=== PATIENT | female | born 1940 | race African-American/Black ===

== ENCOUNTER 2018-03-12 18:30 | Observation (INO) ==
[2018-03-13] MEDS ORDERED: SODIUM CHLORIDE 0.9% 500 ML IV STA (00:24)
[2018-03-13] MEDS ORDERED: ASPIRIN 325 MG TABLET PO STA (00:24)
[2018-03-13] MEDS ORDERED: ONDANSETRON 4 MG/2 ML VIAL IV STA (00:24)
[2018-03-13 01:00] LABS: Basophils % 0.4 % (0.0-0.8); Eosinophils # 0.1 10*3/uL (0.0-0.87); Eosinophils % 1.3 % (0.00-10.9); Hematocrit 30.2 VOL% (35.7-47.0); Hemoglobin 9.3 GM/DL (12.0-16.0); Immature Granulocytes % 0.2 %; Immature Granulocytes Absolute 0.02 #; Lymphocytes % 21.4 % (21.3-54.2); Mean Corpuscular HGB Conc 30.8 GM/DL (32-36); Mean Corpuscular Hemoglobin 28 PG (27-34); Mean Corpuscular Volume 91.8 FL (87-102); Mean Platelet Volume 9.2 FL (9.6-12.0); Monocytes # 0.6 10*3/uL (0.11-0.8); Neutrophils # 6.5 10*3/uL (1.4-7.4); Neutrophils % 70.7 % (38.7-73.9); Platelet Count 321 T/CUMM (130-400); Red Blood Count 3.29 MC/CUMM (3.8-5.5); Red Cell Distribution Width 15.8 % (9.3-17.3); White Blood Count 9.3 T/CUMM (4-12)
[2018-03-13 01:09] LABS: INR 1.1; PT Patient Result 11.4 SECS
[2018-03-13 01:48] LABS: Albumin 2.9 G/DL (3.4-5.0); Bilirubin,Total 0.5 MG/DL (0.2-1.0); Calcium 13.3 MG/DL (8.5-10.1); Osmolality,Calculated 283.4 MOS/KG (273-304); Potassium 3.3 MMOL/L (3.5-5.1)
[2018-03-13] MEDS ORDERED: MAGNESIUM SULF RIDER 2 GM in PREMIX 1 EACH IV STA (01:58)
[2018-03-13] MEDS ORDERED: POTASSIUM CHLORIDE 20 MEQ TABLET PO STA (01:58)
[2018-03-13 02:01] LABS: Apearance,Urine CLOUDY (Clear); Bacteria,Urine Occasional /HPF (Few); Bilirubin,Urine Negative (Negative); Blood, Urine Negative (Negative); Glucose,Urine (UA) Negative (Negative); Hyaline Casts,Urine 34 /LPF (0-3); Ketones,Urine Negative (Negative); Mucus,Urine Many /LPF (Occasional); Nitrite,Urine Negative (Negative); Protein,Urine Negative; RBC,Urine 7 /HPF (0-4); Squamous Epithelial Cell,Urine Many /HPF (0-10); Transitional Epi Cells,Urine Few /HPF (<1); Urine Color Amber (Yellow); Urine Specific Gravity 1.025 (1.001-1.035); WBC,Urine 68 /HPF (0-6)
[2018-03-13] MEDS ORDERED: ZOLEDRONIC ACID 4 MG in PREMIX 1 EACH IV ONE (03:19)
[2018-03-13] MEDS ORDERED: MORPHINE 4 MG/1 ML VIAL IV PRN (03:21)
[2018-03-13] MEDS ORDERED: ONDANSETRON 4 MG/2 ML VIAL IV PRN (03:21)
[2018-03-13] MEDS ORDERED: DOCUSATE SODIUM 100 MG CAPSULE PO PRN (03:21)
[2018-03-13] MEDS ORDERED: MAGNESIUM SULF RIDER 4 GM in PREMIX 1 EACH IV PRN (03:28)
[2018-03-13] MEDS ORDERED: MAGNESIUM SULF RIDER 2 GM in PREMIX 1 EACH IV PRN (03:28)
[2018-03-13] MEDS: cefTRIAXone 1,000 MG in SYRINGE 1 EACH IV SCH (04:42)
[2018-03-13] MEDS: SODIUM CHLORIDE 0.9% 1,000 ML IV SCH ×2 (04:43→19:30)
[2018-03-13] MEDS: CARVEDILOL 12.5 MG TABLET PO SCH (16:29)
[2018-03-13] MEDS: POTASSIUM CHLORIDE 20 MEQ TABLET PO PRN ×2 (18:38→22:59)
[2018-03-13] MEDS: SIMVASTATIN 20 MG TABLET PO SCH (22:59)
[2018-03-14] MEDS: cefTRIAXone 1,000 MG in SYRINGE 1 EACH IV SCH (06:17)
[2018-03-14 07:20] LABS: Calcium 11.2 MG/DL (8.5-10.1); Osmolality,Calculated 283.1 MOS/KG (273-304); Potassium 4.1 MMOL/L (3.5-5.1); Thyroid Stimulating Hormone 1.4 uIU/ml (0.358-3.74)
[2018-03-14 08:12] LABS: Basophils % 0.2 % (0.0-0.8); Eosinophils % 0.4 % (0.00-10.9); Hematocrit 26.7 VOL% (35.7-47.0); Immature Granulocytes % 0.8 %; Immature Granulocytes Absolute 0.09 #; Lymphocytes # 0.9 10*3/uL (1.4-4.0); Lymphocytes % 7.7 % (21.3-54.2); Mean Corpuscular Hemoglobin 28 PG (27-34); Mean Corpuscular Volume 94.7 FL (87-102); Mean Platelet Volume 9.2 FL (9.6-12.0); Monocytes # 0.5 10*3/uL (0.11-0.8); Monocytes % 4.1 % (1.7-12.7); Neutrophils # 9.9 10*3/uL (1.4-7.4); Neutrophils % 86.8 % (38.7-73.9); Platelet Count 261 T/CUMM (130-400); Red Blood Count 2.82 MC/CUMM (3.8-5.5); Red Cell Distribution Width 15.8 % (9.3-17.3); White Blood Count 11.4 T/CUMM (4-12)
[2018-03-14] MEDS: CHOLECALCIFEROL 5,000 UNIT TABLET PO SCH (10:23)
[2018-03-14] MEDS: FERROUS SULFATE 325 MG TABLET PO SCH (10:24)
[2018-03-14] MEDS: LOSARTAN 50 MG TABLET PO SCH (10:24)
[2018-03-14] MEDS: CARVEDILOL 12.5 MG TABLET PO SCH ×2 (10:24→17:13)
[2018-03-14] MEDS: SODIUM CHLORIDE 0.9% 1,000 ML IV SCH (15:31)
[2018-03-14] MEDS ORDERED: SODIUM CHLORIDE 0.9% 500 ML IV ONE (15:31)
[2018-03-14] MEDS ORDERED: ALBUTEROL/IPRATROPIUM 3 ML NEB RESP TX STA (16:01)
[2018-03-14 16:27] LABS: Basophils % 0.3 % (0.0-0.8); Eosinophils % 0.4 % (0.00-10.9); Hematocrit 23.2 VOL% (35.7-47.0); Hemoglobin 6.9 GM/DL (12.0-16.0); Immature Granulocytes % 0.5 %; Immature Granulocytes Absolute 0.05 #; Lymphocytes # 0.7 10*3/uL (1.4-4.0); Lymphocytes % 6.8 % (21.3-54.2); Mean Corpuscular HGB Conc 29.7 GM/DL (32-36); Mean Corpuscular Hemoglobin 28 PG (27-34); Mean Corpuscular Volume 95.1 FL (87-102); Mean Platelet Volume 8.9 FL (9.6-12.0); Monocytes # 0.5 10*3/uL (0.11-0.8); Monocytes % 4.7 % (1.7-12.7); Neutrophils # 9.4 10*3/uL (1.4-7.4); Neutrophils % 87.3 % (38.7-73.9); Platelet Count 232 T/CUMM (130-400); Red Blood Count 2.44 MC/CUMM (3.8-5.5); Red Cell Distribution Width 15.8 % (9.3-17.3); White Blood Count 10.8 T/CUMM (4-12)
[2018-03-14 16:29] LABS: ABG Base Excess -0.3 MMOL/L (-2.5-2.5); ABG HCO3 24.2 MMOL/L (20-26); ABG PCO2 46.5 MM HG (35-48); ABG PH 7.347 (7.35-7.45); ABG TCO2 24.1 MMOL/L (23-27); Allen Test Positive
[2018-03-14 16:51] LABS: Calcium 10.5 MG/DL (8.5-10.1); Osmolality,Calculated 284.1 MOS/KG (273-304); Potassium 3.9 MMOL/L (3.5-5.1)
[2018-03-14] MEDS ORDERED: SODIUM CHLORIDE 0.9% 1,000 ML IV PRN (16:57)
[2018-03-14] MEDS: ZINC OXIDE PASTE 113 GM TUBE TOP SCH ×2 (18:30→23:00)
[2018-03-14] MEDS: ALBUTEROL/IPRATROPIUM 3 ML NEB RESP TX SCH ×2 (19:46→23:03)
[2018-03-14] MEDS: SIMVASTATIN 20 MG TABLET PO SCH (22:50)
[2018-03-15] MEDS: ALBUTEROL/IPRATROPIUM 3 ML NEB RESP TX SCH ×6 (02:03→23:16)
[2018-03-15 05:08] LABS: Basophils % 0.3 % (0.0-0.8); Eosinophils # 0.2 10*3/uL (0.0-0.87); Eosinophils % 1.3 % (0.00-10.9); Hematocrit 31.8 VOL% (35.7-47.0); Immature Granulocytes % 0.3 %; Immature Granulocytes Absolute 0.04 #; Lymphocytes % 8.2 % (21.3-54.2); Mean Corpuscular HGB Conc 31.4 GM/DL (32-36); Mean Corpuscular Hemoglobin 28 PG (27-34); Mean Corpuscular Volume 90.1 FL (87-102); Mean Platelet Volume 9.5 FL (9.6-12.0); Monocytes # 0.6 10*3/uL (0.11-0.8); Monocytes % 4.8 % (1.7-12.7); Neutrophils # 9.8 10*3/uL (1.4-7.4); Neutrophils % 85.1 % (38.7-73.9); Platelet Count 248 T/CUMM (130-400); Red Blood Count 3.53 MC/CUMM (3.8-5.5); Red Cell Distribution Width 15.9 % (9.3-17.3); White Blood Count 11.6 T/CUMM (4-12)
[2018-03-15 05:28] LABS: Calcium 10.4 MG/DL (8.5-10.1); Osmolality,Calculated 283.1 MOS/KG (273-304); Potassium 3.7 MMOL/L (3.5-5.1)
[2018-03-15] MEDS: cefTRIAXone 1,000 MG in SYRINGE 1 EACH IV SCH (05:35)
[2018-03-15] MEDS: CHOLECALCIFEROL 5,000 UNIT TABLET PO SCH (08:57)
[2018-03-15] MEDS: CARVEDILOL 12.5 MG TABLET PO SCH ×2 (08:58→18:14)
[2018-03-15] MEDS: FERROUS SULFATE 325 MG TABLET PO SCH (08:58)
[2018-03-15] MEDS: LOSARTAN 50 MG TABLET PO SCH (08:58)
[2018-03-15] MEDS: ZINC OXIDE PASTE 113 GM TUBE TOP SCH ×2 (10:26→21:41)
[2018-03-15] MEDS: SIMVASTATIN 20 MG TABLET PO SCH (21:40)
[2018-03-16] MEDS: ALBUTEROL/IPRATROPIUM 3 ML NEB RESP TX SCH ×6 (02:54→23:15)
[2018-03-16] MEDS: cefTRIAXone 1,000 MG in SYRINGE 1 EACH IV SCH (04:18)
[2018-03-16 05:09] LABS: Basophils % 0.2 % (0.0-0.8); Eosinophils # 0.2 10*3/uL (0.0-0.87); Eosinophils % 2.2 % (0.00-10.9); Hematocrit 29.9 VOL% (35.7-47.0); Hemoglobin 9.3 GM/DL (12.0-16.0); Immature Granulocytes % 0.6 %; Immature Granulocytes Absolute 0.05 #; Lymphocytes # 0.9 10*3/uL (1.4-4.0); Lymphocytes % 10.1 % (21.3-54.2); Mean Corpuscular HGB Conc 31.1 GM/DL (32-36); Mean Corpuscular Hemoglobin 28 PG (27-34); Mean Corpuscular Volume 89.8 FL (87-102); Mean Platelet Volume 9.1 FL (9.6-12.0); Monocytes # 0.5 10*3/uL (0.11-0.8); Monocytes % 5.7 % (1.7-12.7); Neutrophils # 7.3 10*3/uL (1.4-7.4); Neutrophils % 81.2 % (38.7-73.9); Platelet Count 241 T/CUMM (130-400); Red Blood Count 3.33 MC/CUMM (3.8-5.5); Red Cell Distribution Width 15.7 % (9.3-17.3)
[2018-03-16 05:45] LABS: % Iron Saturation 15.5 % (18-50); Calcium 9.4 MG/DL (8.5-10.1); Ferritin 521.6 ng/ml (8-252); Osmolality,Calculated 283.1 MOS/KG (273-304); Potassium 3.4 MMOL/L (3.5-5.1)
[2018-03-16 05:54] LABS: Folate 9.8 NG/ML (5.4-24.0); Vitamin B12 > 2000 PG/ML (211-911)
[2018-03-16] MEDS: CARVEDILOL 12.5 MG TABLET PO SCH ×2 (08:18→16:46)
[2018-03-16] MEDS: CHOLECALCIFEROL 5,000 UNIT TABLET PO SCH (08:18)
[2018-03-16] MEDS: LOSARTAN 50 MG TABLET PO SCH (08:18)
[2018-03-16] MEDS: FERROUS SULFATE 325 MG TABLET PO SCH (08:18)
[2018-03-16] MEDS: ZINC OXIDE PASTE 113 GM TUBE TOP SCH ×2 (11:09→21:34)
[2018-03-16] MEDS: SIMVASTATIN 20 MG TABLET PO SCH (22:52)
[2018-03-17] MEDS: ALBUTEROL/IPRATROPIUM 3 ML NEB RESP TX SCH ×5 (02:58→19:48)
[2018-03-17] MEDS: cefTRIAXone 1,000 MG in SYRINGE 1 EACH IV SCH (04:07)
[2018-03-17 05:50] LABS: Basophils % 0.4 % (0.0-0.8); Eosinophils # 0.1 10*3/uL (0.0-0.87); Eosinophils % 1.7 % (0.00-10.9); Hematocrit 30.4 VOL% (35.7-47.0); Hemoglobin 9.6 GM/DL (12.0-16.0); Immature Granulocytes % 0.7 %; Immature Granulocytes Absolute 0.06 #; Lymphocytes % 11.8 % (21.3-54.2); Mean Corpuscular HGB Conc 31.6 GM/DL (32-36); Mean Corpuscular Hemoglobin 28 PG (27-34); Mean Corpuscular Volume 89.4 FL (87-102); Mean Platelet Volume 9.2 FL (9.6-12.0); Monocytes # 0.5 10*3/uL (0.11-0.8); Monocytes % 6.6 % (1.7-12.7); Neutrophils # 6.4 10*3/uL (1.4-7.4); Neutrophils % 78.8 % (38.7-73.9); Platelet Count 245 T/CUMM (130-400); Red Cell Distribution Width 15.4 % (9.3-17.3); White Blood Count 8.1 T/CUMM (4-12)
[2018-03-17 06:06] LABS: Calcium 9.6 MG/DL (8.5-10.1); Osmolality,Calculated 276.5 MOS/KG (273-304); Potassium 3.4 MMOL/L (3.5-5.1)
[2018-03-17 07:36] LABS: Apearance,Urine CLEAR (Clear); Bilirubin,Urine Negative (Negative); Blood, Urine Negative (Negative); Glucose,Urine (UA) Negative (Negative); Ketones,Urine Negative (Negative); Mucus,Urine Occasional /LPF (Occasional); Nitrite,Urine Negative (Negative); Protein,Urine Negative; RBC,Urine <1 /HPF (0-4); Urine Color Yellow (Yellow); Urine Urobilinogen < 2.0 EU/DL (0.2-1.0); WBC,Urine 2 /HPF (0-6)
[2018-03-17] MEDS: LOSARTAN 50 MG TABLET PO SCH (08:38)
[2018-03-17] MEDS: FERROUS SULFATE 325 MG TABLET PO SCH (08:38)
[2018-03-17] MEDS: CARVEDILOL 12.5 MG TABLET PO SCH ×2 (08:38→17:27)
[2018-03-17] MEDS: CHOLECALCIFEROL 5,000 UNIT TABLET PO SCH (08:38)
[2018-03-17] MEDS: ZINC OXIDE PASTE 113 GM TUBE TOP SCH ×2 (11:54→21:29)
[2018-03-17] MEDS: POTASSIUM CHLORIDE 20 MEQ TABLET PO PRN (21:29)
[2018-03-17] MEDS: SIMVASTATIN 20 MG TABLET PO SCH (21:29)
[2018-03-18] MEDS: ALBUTEROL/IPRATROPIUM 3 ML NEB RESP TX SCH ×7 (00:32→22:45)
[2018-03-18] MEDS: cefTRIAXone 1,000 MG in SYRINGE 1 EACH IV SCH (04:30)
[2018-03-18 05:38] LABS: Basophils % 0.3 % (0.0-0.8); Eosinophils # 0.2 10*3/uL (0.0-0.87); Eosinophils % 2.1 % (0.00-10.9); Hemoglobin 9.7 GM/DL (12.0-16.0); Immature Granulocytes % 0.5 %; Immature Granulocytes Absolute 0.04 #; Lymphocytes # 0.7 10*3/uL (1.4-4.0); Lymphocytes % 9.5 % (21.3-54.2); Mean Corpuscular HGB Conc 30.3 GM/DL (32-36); Mean Corpuscular Hemoglobin 28 PG (27-34); Mean Corpuscular Volume 92.5 FL (87-102); Mean Platelet Volume 9.5 FL (9.6-12.0); Monocytes # 0.5 10*3/uL (0.11-0.8); Monocytes % 6.4 % (1.7-12.7); Neutrophils # 6.3 10*3/uL (1.4-7.4); Neutrophils % 81.2 % (38.7-73.9); Platelet Count 229 T/CUMM (130-400); Red Blood Count 3.46 MC/CUMM (3.8-5.5); Red Cell Distribution Width 15.5 % (9.3-17.3); White Blood Count 7.7 T/CUMM (4-12)
[2018-03-18 05:52] LABS: Calcium 9.3 MG/DL (8.5-10.1); Osmolality,Calculated 281.4 MOS/KG (273-304); Potassium 3.6 MMOL/L (3.5-5.1)
[2018-03-18] MEDS: POTASSIUM CHLORIDE 20 MEQ TABLET PO PRN ×2 (07:25→09:26)
[2018-03-18] MEDS: CARVEDILOL 12.5 MG TABLET PO SCH ×2 (09:26→17:22)
[2018-03-18] MEDS: FERROUS SULFATE 325 MG TABLET PO SCH (09:26)
[2018-03-18] MEDS: LOSARTAN 50 MG TABLET PO SCH (09:26)
[2018-03-18] MEDS: ZINC OXIDE PASTE 113 GM TUBE TOP SCH ×2 (09:26→20:25)
[2018-03-18] MEDS: CHOLECALCIFEROL 5,000 UNIT TABLET PO SCH (09:26)
[2018-03-18] MEDS: SIMVASTATIN 20 MG TABLET PO SCH (20:25)
[2018-03-19] MEDS: ALBUTEROL/IPRATROPIUM 3 ML NEB RESP TX SCH ×6 (02:32→19:27)
[2018-03-19] MEDS: cefTRIAXone 1,000 MG in SYRINGE 1 EACH IV SCH (04:08)
[2018-03-19 05:36] LABS: Basophils % 0.4 % (0.0-0.8); Eosinophils # 0.1 10*3/uL (0.0-0.87); Eosinophils % 1.7 % (0.00-10.9); Hematocrit 30.3 VOL% (35.7-47.0); Hemoglobin 9.4 GM/DL (12.0-16.0); Immature Granulocytes % 0.5 %; Immature Granulocytes Absolute 0.04 #; Lymphocytes # 0.9 10*3/uL (1.4-4.0); Lymphocytes % 10.9 % (21.3-54.2); Mean Corpuscular Hemoglobin 28 PG (27-34); Mean Corpuscular Volume 90.2 FL (87-102); Mean Platelet Volume 9.4 FL (9.6-12.0); Monocytes # 0.5 10*3/uL (0.11-0.8); Monocytes % 6.3 % (1.7-12.7); Neutrophils # 6.8 10*3/uL (1.4-7.4); Neutrophils % 80.2 % (38.7-73.9); Platelet Count 277 T/CUMM (130-400); Red Blood Count 3.36 MC/CUMM (3.8-5.5); Red Cell Distribution Width 15.6 % (9.3-17.3); White Blood Count 8.5 T/CUMM (4-12)
[2018-03-19 06:03] LABS: Calcium 9.2 MG/DL (8.5-10.1); Osmolality,Calculated 281.4 MOS/KG (273-304); Potassium 3.9 MMOL/L (3.5-5.1)
[2018-03-19] MEDS ORDERED: MAGNESIUM HYDROXIDE SUSP 30 ML UDCUP PO PRN (08:45)
[2018-03-19] MEDS: CHOLECALCIFEROL 5,000 UNIT TABLET PO SCH (08:55)
[2018-03-19] MEDS: CARVEDILOL 12.5 MG TABLET PO SCH ×2 (08:56→17:53)
[2018-03-19] MEDS: FERROUS SULFATE 325 MG TABLET PO SCH (08:56)
[2018-03-19] MEDS: LOSARTAN 50 MG TABLET PO SCH (08:56)
[2018-03-19] MEDS: ZINC OXIDE PASTE 113 GM TUBE TOP SCH ×2 (09:05→21:45)
[2018-03-19] MEDS: POLYETHYLENE GLYCOL POWDER 17 GM PACK PO SCH (09:12)
[2018-03-19] MEDS: KETOCONAZOLE 2% CREAM 30 GM TUBE TOP SCH ×2 (14:50→21:45)
[2018-03-19] MEDS: SIMVASTATIN 20 MG TABLET PO SCH (21:45)
[2018-03-20] MEDS: ALBUTEROL/IPRATROPIUM 3 ML NEB RESP TX SCH ×7 (00:38→23:53)
[2018-03-20 06:28] LABS: Basophils % 0.4 % (0.0-0.8); Eosinophils # 0.2 10*3/uL (0.0-0.87); Eosinophils % 1.7 % (0.00-10.9); Hematocrit 31.3 VOL% (35.7-47.0); Hemoglobin 9.5 GM/DL (12.0-16.0); Immature Granulocytes % 0.3 %; Immature Granulocytes Absolute 0.03 #; Lymphocytes % 10.9 % (21.3-54.2); Mean Corpuscular HGB Conc 30.4 GM/DL (32-36); Mean Corpuscular Hemoglobin 28 PG (27-34); Mean Corpuscular Volume 92.3 FL (87-102); Mean Platelet Volume 10.1 FL (9.6-12.0); Monocytes # 0.7 10*3/uL (0.11-0.8); Monocytes % 7.4 % (1.7-12.7); Neutrophils # 7.1 10*3/uL (1.4-7.4); Neutrophils % 79.3 % (38.7-73.9); Platelet Count 277 T/CUMM (130-400); Red Blood Count 3.39 MC/CUMM (3.8-5.5); Red Cell Distribution Width 15.5 % (9.3-17.3)
[2018-03-20 06:33] LABS: Calcium 9.3 MG/DL (8.5-10.1); Osmolality,Calculated 286.3 MOS/KG (273-304); Potassium 4.2 MMOL/L (3.5-5.1)
[2018-03-20] MEDS: POLYETHYLENE GLYCOL POWDER 17 GM PACK PO SCH (08:40)
[2018-03-20] MEDS: ZINC OXIDE PASTE 113 GM TUBE TOP SCH ×2 (08:41→21:20)
[2018-03-20] MEDS: LOSARTAN 50 MG TABLET PO SCH (08:41)
[2018-03-20] MEDS: KETOCONAZOLE 2% CREAM 30 GM TUBE TOP SCH ×2 (08:41→21:20)
[2018-03-20] MEDS: CHOLECALCIFEROL 5,000 UNIT TABLET PO SCH (08:41)
[2018-03-20] MEDS: CARVEDILOL 12.5 MG TABLET PO SCH ×2 (08:41→16:12)
[2018-03-20] MEDS: FERROUS SULFATE 325 MG TABLET PO SCH (08:41)
[2018-03-20] MEDS: SIMVASTATIN 20 MG TABLET PO SCH (21:20)
[2018-03-21] MEDS: ALBUTEROL/IPRATROPIUM 3 ML NEB RESP TX SCH ×6 (03:57→23:41)
[2018-03-21 05:39] LABS: Basophils % 0.3 % (0.0-0.8); Eosinophils # 0.1 10*3/uL (0.0-0.87); Eosinophils % 1.3 % (0.00-10.9); Hematocrit 31.1 VOL% (35.7-47.0); Hemoglobin 9.5 GM/DL (12.0-16.0); Immature Granulocytes % 0.3 %; Immature Granulocytes Absolute 0.03 #; Lymphocytes # 0.9 10*3/uL (1.4-4.0); Lymphocytes % 10.2 % (21.3-54.2); Mean Corpuscular HGB Conc 30.5 GM/DL (32-36); Mean Corpuscular Hemoglobin 28 PG (27-34); Mean Platelet Volume 9.3 FL (9.6-12.0); Monocytes # 0.6 10*3/uL (0.11-0.8); Monocytes % 6.3 % (1.7-12.7); Neutrophils # 7.3 10*3/uL (1.4-7.4); Neutrophils % 81.6 % (38.7-73.9); Platelet Count 287 T/CUMM (130-400); Red Blood Count 3.38 MC/CUMM (3.8-5.5); Red Cell Distribution Width 15.6 % (9.3-17.3)
[2018-03-21 06:13] LABS: Calcium 9.3 MG/DL (8.5-10.1); Osmolality,Calculated 284.3 MOS/KG (273-304); Potassium 4.2 MMOL/L (3.5-5.1)
[2018-03-21] MEDS: POLYETHYLENE GLYCOL POWDER 17 GM PACK PO SCH (09:12)
[2018-03-21] MEDS: FERROUS SULFATE 325 MG TABLET PO SCH (09:12)
[2018-03-21] MEDS: LOSARTAN 50 MG TABLET PO SCH (09:12)
[2018-03-21] MEDS: CHOLECALCIFEROL 5,000 UNIT TABLET PO SCH (09:12)
[2018-03-21] MEDS: CARVEDILOL 12.5 MG TABLET PO SCH ×2 (09:12→16:48)
[2018-03-21] MEDS: ZINC OXIDE PASTE 113 GM TUBE TOP SCH ×2 (09:13→21:36)
[2018-03-21] MEDS: KETOCONAZOLE 2% CREAM 30 GM TUBE TOP SCH ×2 (09:13→21:36)
[2018-03-21] MEDS: SIMVASTATIN 20 MG TABLET PO SCH (21:36)
[2018-03-22] MEDS: ALBUTEROL/IPRATROPIUM 3 ML NEB RESP TX SCH ×5 (03:52→20:25)
[2018-03-22] MEDS: LOSARTAN 50 MG TABLET PO SCH (10:08)
[2018-03-22] MEDS: KETOCONAZOLE 2% CREAM 30 GM TUBE TOP SCH ×2 (10:08→20:30)
[2018-03-22] MEDS: CARVEDILOL 12.5 MG TABLET PO SCH ×2 (10:08→17:33)
[2018-03-22] MEDS: ZINC OXIDE PASTE 113 GM TUBE TOP SCH ×2 (10:08→20:30)
[2018-03-22] MEDS: CHOLECALCIFEROL 5,000 UNIT TABLET PO SCH (10:08)
[2018-03-22] MEDS: FERROUS SULFATE 325 MG TABLET PO SCH (10:08)
[2018-03-22] MEDS: POLYETHYLENE GLYCOL POWDER 17 GM PACK PO SCH (10:08)
[2018-03-22] MEDS: ACETAMINOPHEN 325 MG TABLET PO PRN (20:26)
[2018-03-22] MEDS: SIMVASTATIN 20 MG TABLET PO SCH (20:26)
[2018-03-23] MEDS: ALBUTEROL/IPRATROPIUM 3 ML NEB RESP TX SCH ×7 (04:08→23:10)
[2018-03-23] MEDS: POLYETHYLENE GLYCOL POWDER 17 GM PACK PO SCH (10:03)
[2018-03-23] MEDS: LOSARTAN 50 MG TABLET PO SCH (10:04)
[2018-03-23] MEDS: FERROUS SULFATE 325 MG TABLET PO SCH (10:04)
[2018-03-23] MEDS: KETOCONAZOLE 2% CREAM 30 GM TUBE TOP SCH ×2 (10:04→21:42)
[2018-03-23] MEDS: CARVEDILOL 12.5 MG TABLET PO SCH ×2 (10:04→16:36)
[2018-03-23] MEDS: CHOLECALCIFEROL 5,000 UNIT TABLET PO SCH (10:04)
[2018-03-23] MEDS: ZINC OXIDE PASTE 113 GM TUBE TOP SCH ×2 (10:04→21:42)
[2018-03-23] MEDS ORDERED: MAGNESIUM HYDROXIDE SUSP 30 ML UDCUP PO ONE (11:33)
[2018-03-23] MEDS: DOCUSATE SODIUM 100 MG CAPSULE PO SCH ×2 (12:28→21:40)
[2018-03-23] MEDS: ACETAMINOPHEN 325 MG TABLET PO PRN (17:58)
[2018-03-23] MEDS: SIMVASTATIN 20 MG TABLET PO SCH (21:40)
[2018-03-24] MEDS: ALBUTEROL/IPRATROPIUM 3 ML NEB RESP TX SCH ×4 (02:55→15:39)
[2018-03-24] MEDS: LOSARTAN 50 MG TABLET PO SCH (08:42)
[2018-03-24] MEDS: FERROUS SULFATE 325 MG TABLET PO SCH (08:43)
[2018-03-24] MEDS: DOCUSATE SODIUM 100 MG CAPSULE PO SCH (08:43)
[2018-03-24] MEDS: CARVEDILOL 12.5 MG TABLET PO SCH ×2 (08:43→16:30)
[2018-03-24] MEDS: POLYETHYLENE GLYCOL POWDER 17 GM PACK PO SCH (08:43)
[2018-03-24] MEDS: CHOLECALCIFEROL 5,000 UNIT TABLET PO SCH (08:43)
[2018-03-24] MEDS: ZINC OXIDE PASTE 113 GM TUBE TOP SCH (14:12)
[2018-03-24] MEDS: KETOCONAZOLE 2% CREAM 30 GM TUBE TOP SCH (14:12)
[2018-03-24 15:51] VITALS: BP 111/57
== END 2018-03-24 17:50 | disposition home health service (06) ==
LOC: N.ED 18:30 → N.EDINP 18:30 → SUATTDRO 03-13 03:18 → N.TELEN 03-13 03:37
PROVIDERS: ADMIT Internal Medicine; ATTEND Emergency Medicine